=== PATIENT | female | born 1960 | race Caucasian/White ===

== ENCOUNTER 2021-06-24 15:49 | Inpatient (IN) | payer MEDICARE, SELFPAY ==
[~2021-06-24 15:49] MED LIST: Iopamidol-370 76% 500 ML 1 ML ONE
[2021-06-24 16:12] LABS: #Lymphocytes 1.6 thou/uL (1.20-3.40); #Monocytes 0.8 thou/uL (0.11-0.59); #Neutrophils 6.2 thou/uL (1.40-6.50); %Eosinophils 0.2 % (0.0-10.0); %Lymphocytes 18.2 % (21.0-51.0); %Monocytes 9.1 % (0.0-10.0); %Neutrophils 72.4 % (42.0-75.0); Hemoglobin 13.1 g/dL (12.0-16.0); Mean Corpuscular HGB CONC 35.7 g/dL (32.0-36.0); Mean Corpuscular Hemoglobin 34.7 pg (27.0-31.0); Mean Corpuscular Volume 97.3 fL (78.0-98.0); Mean Platelet Volume 7.1 fL (7.4-10.4); Platelet Count 318 thou/uL (130-400); RBC Distribution Width 11.2 % (11.5-14.5); Red Blood Cell (RBC) Count 3.79 mill/uL (4.20-5.40); White Blood Cell (WBC) Count 8.6 thou/uL (4.8-10.8)
[2021-06-24 16:33] LABS: ALT (SGPT) 283 U/L (8-55); AST (SGOT) 160 U/L (5-34); Alkaline Phosphatase 301 U/L (40-110); Anion Gap 13 mmol/L (10-20); BUN (Urea Nitrogen) 10 mg/dL (9.8-20.1); Bilirubin, Total 0.3 mg/dL (0.2-1.2); Calc. Creatinine Clearance 0 mL/min (70-130); Carbon Dioxide 27 mmol/L (22-29); Chloride 96 mmol/L (98-107); Globulin 3.5 g/dL (2.4-3.5); Glucose 94 mg/dL (70-105); Lipase 10 U/L (8-78); Potassium 3.8 mmol/L (3.5-5.1); Protein, Total 7.5 g/dL (6.0-8.3); Sodium 132 mmol/L (136-145)
[2021-06-24] MEDS ORDERED: Ketorolac Tromethamine 30 MG/ML VIAL ONE (18:02)
[2021-06-24] MEDS ORDERED: Acetaminophen 500 MG TAB ONE (18:02)
[2021-06-24 18:12] LABS: Bacteria/HPF None Seen HPF (None Seen); Bilirubin Negative (Negative); Blood, Urine Negative (Negative); Clarity Clear (Clear); Glucose, Urine (Dipstick) Normal (Negative); Ketone, Urine Negative (Negative); Leukocyte Negative Leu/uL (Negative); Nitrite Negative (Negative); Protein, Urine (Dipstick) 30 mg/dL (Neg-Trace); Specific Gravity, Urine 1.026 (1.002-1.036); Squamous Epithelial None Seen HPF (0-3); pH, Urine 6.5 (5.0-9.0)
[2021-06-24 18:32] LABS: Acetaminophen Less than 6.0 mcg/mL (10.0-30.0); Alcohol Less than 10 mg/dL (Less than 10); Salicylate Less than 8.0 mg/dL (15.0-30.0)
[2021-06-24 19:27] LABS: SARS-CoV-2 NAA Rapid Test DETECTED (NotDetected)
[2021-06-24] MEDS ORDERED: Senokot S 8.6-50 MG TAB PO PRN (19:56)
[2021-06-24] MEDS ORDERED: Ondansetron ODT 4 MG TAB PO PRN (19:56)
[2021-06-24] MEDS: Sodium Chloride 0.9% 1,000 ML IV SCH (21:17)
[2021-06-24] MEDS: Nicotine 14 MG PATCH TD SCH (21:17)
[2021-06-24 22:29] VITALS: BMI 23.8
[2021-06-24 22:54] LABS: Amphetamine Not Detected (NotDetected); Barbiturates Screen Not Detected (NotDetected); Benzodiazepine Screen Not Detected (NotDetected); Cocaine Metabolite Screen Not Detected (NotDetected); Methadone Not Detected (NotDetected); Methamphetamine Not Detected (NotDetected); Opiate Screen Not Detected (NotDetected); Oxycodone Screen Not Detected (NotDetected); Phencyclidine (PCP) Not Detected (NotDetected); THC/Cannabinoid Screen Detected (NotDetected); Tricyclic Screen Not Detected (NotDetected)
[2021-06-25] MEDS ORDERED: Albuterol 200 PUFF (6.7GM INHALER) INH PRN (02:03)
[2021-06-25] MEDS ORDERED: Dexamethasone 10 MG in Sodium Chloride 0.9% 50 ML IVPB SCH (02:30)
[2021-06-25] MEDS: Albuterol 200 PUFF (6.7GM INHALER) INH SCH ×6 (03:05→23:00)
[2021-06-25] MEDS: Sodium Chloride 0.9% 1,000 ML IV SCH (05:28)
[2021-06-25 06:20] LABS: ALT (SGPT) 185 U/L (8-55); AST (SGOT) 81 U/L (5-34); Albumin 3.2 g/dL (3.5-5.0); Alkaline Phosphatase 224 U/L (40-110); Anion Gap 11 mmol/L (10-20); BUN (Urea Nitrogen) 9 mg/dL (9.8-20.1); Bilirubin, Total 0.3 mg/dL (0.2-1.2); Calc. Creatinine Clearance 86 mL/min (70-130); Calcium 8.8 mg/dL (7.8-10.44); Carbon Dioxide 25 mmol/L (22-29); Chloride 105 mmol/L (98-107); Globulin 3.1 g/dL (2.4-3.5); Glucose 93 mg/dL (70-105); Potassium 3.7 mmol/L (3.5-5.1); Protein, Total 6.3 g/dL (6.0-8.3); Sodium 137 mmol/L (136-145)
[2021-06-25] MEDS ORDERED: Dexamethasone 4 MG TAB PO SCH (08:00)
[2021-06-25 08:23] LABS: Band 39 % (5-11); Hemoglobin 10.5 g/dL (12.0-16.0); Lymphocytes 13 % (21-51); MDiff Complete? YES; Mean Corpuscular HGB CONC 34.1 g/dL (32.0-36.0); Mean Corpuscular Hemoglobin 33.4 pg (27.0-31.0); Mean Platelet Volume 7.4 fL (7.4-10.4); Monocytes 4 % (0-10); Myelocyte 2 % (0-0); Neutrophil 42 % (42-75); Platelet Count 301 thou/uL (130-400); RBC Distribution Width 11.3 % (11.5-14.5); Red Blood Cell (RBC) Count 3.16 mill/uL (4.20-5.40); White Blood Cell (WBC) Count 8.3 thou/uL (4.8-10.8)
[2021-06-25] MEDS ORDERED: FLU VACC QS2021-22(6MOS UP)/PF 60 MCG/0.5 ML SYRINGE IM ONE (09:00)
[2021-06-25] MEDS ORDERED: Atorvastatin Calcium 10 MG TAB PO SCH (09:00)
[2021-06-25] MEDS ORDERED: Divalproex Sodium 250 MG (DR) TAB PO SCH (09:00)
[2021-06-25] MEDS ORDERED: Benztropine 1 MG TAB PO SCH (09:00)
[2021-06-25] MEDS: Enoxaparin Sodium 40 MG/0.4 ML SYRINGE SC SCH (09:22)
[2021-06-25] MEDS: Fluticasone Propionate Nasal Spray 16 gm Bottle NASAL SCH (10:06)
[2021-06-25] MEDS ORDERED: Valproate Sodium 250 MG in Sodium Chloride 0.9% 100 ML IVPB SCH (10:30)
[2021-06-25] MEDS: Trospium 20 MG TAB PO SCH ×2 (10:45→20:47)
[2021-06-25] MEDS: Venlafaxine HCl XR 75 MG CAP PO SCH (10:46)
[2021-06-25 14:09] LABS: HBSAB Concentration Less than 8.00 mIU/mL; HBSAg Index 0.16 S/CO (0-0.99); Hep B Core Total Ab Non-Reactive (NonReactive); Hep B Surf AB Non-Reactive (NonReactive); Hep B Surf Ag Non-Reactive S/CO (NonReactive); Hep C IgG Ab Non-Reactive (NonReactive)
[2021-06-25 14:12] LABS: HIV (1/2) Antibody/Antigen Non-Reactive (NonReactive); HIV 1/2 INDEX 0.14 S/CO (<1.00)
[2021-06-25] MEDS: Lactated Ringer's 1,000 ML IV SCH (14:12)
[2021-06-25] MEDS ORDERED: Thiamine HCl 200 MG/2 ML VIAL SLOW IVP SCH (15:00)
[2021-06-25] MEDS: Nicotine 14 MG PATCH TD SCH (20:47)
[2021-06-25] MEDS ORDERED: risperiDONE 1 MG TAB PO SCH (21:00)
[2021-06-26] MEDS: Albuterol 200 PUFF (6.7GM INHALER) INH SCH ×6 (02:30→22:00)
[2021-06-26 08:12] LABS: Band 18 % (5-11); Hemoglobin 11.5 g/dL (12.0-16.0); Lymphocytes 35 % (21-51); MDiff Complete? YES; Mean Corpuscular HGB CONC 33.8 g/dL (32.0-36.0); Mean Corpuscular Volume 97.8 fL (78.0-98.0); Mean Platelet Volume 9.3 fL (7.4-10.4); Monocytes 7 % (0-10); Neutrophil 40 % (42-75); Platelet Count 289 thou/uL (130-400); RBC Distribution Width 11.5 % (11.5-14.5); Red Blood Cell (RBC) Count 3.47 mill/uL (4.20-5.40); White Blood Cell (WBC) Count 13.2 thou/uL (4.8-10.8)
[2021-06-26] MEDS: Enoxaparin Sodium 40 MG/0.4 ML SYRINGE SC SCH (09:12)
[2021-06-26] MEDS: Venlafaxine HCl XR 75 MG CAP PO SCH (09:13)
[2021-06-26] MEDS: Trospium 20 MG TAB PO SCH ×2 (09:13→20:58)
[2021-06-26] MEDS: Dexamethasone 4 mg/ml Vial SLOW IVP SCH (09:13)
[2021-06-26] MEDS: Fluticasone Propionate Nasal Spray 16 gm Bottle NASAL SCH (10:11)
[2021-06-26 12:31] LABS: ALT (SGPT) 152 U/L (8-55); AST (SGOT) 56 U/L (5-34); Albumin 3.8 g/dL (3.5-5.0); Alkaline Phosphatase 222 U/L (40-110); Anion Gap 14 mmol/L (10-20); BUN (Urea Nitrogen) 6 mg/dL (9.8-20.1); Bilirubin, Total 0.3 mg/dL (0.2-1.2); Calc. Creatinine Clearance 81 mL/min (70-130); Carbon Dioxide 25 mmol/L (22-29); Chloride 100 mmol/L (98-107); Globulin 3.5 g/dL (2.4-3.5); Glucose 129 mg/dL (70-105); Potassium 3.4 mmol/L (3.5-5.1); Protein, Total 7.3 g/dL (6.0-8.3); Sodium 136 mmol/L (136-145)
[2021-06-26] MEDS: Lactated Ringer's 1,000 ML IV SCH ×3 (16:06→20:58)
[2021-06-26] MEDS: Nicotine 14 MG PATCH TD SCH (20:58)
[2021-06-27] MEDS: Albuterol 200 PUFF (6.7GM INHALER) INH SCH ×6 (02:00→21:02)
[2021-06-27] MEDS ORDERED: diphenhydrAMINE 50 MG/ML VIAL IVP SCH (04:00)
[2021-06-27] MEDS: Lactated Ringer's 1,000 ML IV SCH (06:09)
[2021-06-27 07:58] LABS: ALT (SGPT) 122 U/L (8-55); AST (SGOT) 43 U/L (5-34); Albumin 3.8 g/dL (3.5-5.0); Alkaline Phosphatase 192 U/L (40-110); Anion Gap 13 mmol/L (10-20); BUN (Urea Nitrogen) 5 mg/dL (9.8-20.1); Bilirubin, Total 0.4 mg/dL (0.2-1.2); Calc. Creatinine Clearance 86 mL/min (70-130); Calcium 9.8 mg/dL (7.8-10.44); Carbon Dioxide 25 mmol/L (22-29); Chloride 98 mmol/L (98-107); Globulin 3.4 g/dL (2.4-3.5); Glucose 109 mg/dL (70-105); Potassium 3.1 mmol/L (3.5-5.1); Protein, Total 7.2 g/dL (6.0-8.3); Sodium 133 mmol/L (136-145)
[2021-06-27] MEDS: Trospium 20 MG TAB PO SCH ×2 (09:09→21:00)
[2021-06-27] MEDS: Enoxaparin Sodium 40 MG/0.4 ML SYRINGE SC SCH (09:09)
[2021-06-27] MEDS: Fluticasone Propionate Nasal Spray 16 gm Bottle NASAL SCH (09:09)
[2021-06-27] MEDS: Dexamethasone 4 mg/ml Vial SLOW IVP SCH (09:09)
[2021-06-27] MEDS: Venlafaxine HCl XR 75 MG CAP PO SCH (09:10)
[2021-06-27 12:01] LABS: #Lymphocytes 1.4 thou/uL (1.20-3.40); #Monocytes 0.8 thou/uL (0.11-0.59); #Neutrophils 10.6 thou/uL (1.40-6.50); %Basophils 0.1 % (0.0-1.0); %Eosinophils 0.3 % (0.0-10.0); %Lymphocytes 10.9 % (21.0-51.0); %Monocytes 6.1 % (0.0-10.0); %Neutrophils 82.6 % (42.0-75.0); Mean Corpuscular Hemoglobin 32.8 pg (27.0-31.0); Mean Corpuscular Volume 96.6 fL (78.0-98.0); Mean Platelet Volume 6.8 fL (7.4-10.4); Platelet Count 457 thou/uL (130-400); RBC Distribution Width 11.4 % (11.5-14.5); Red Blood Cell (RBC) Count 3.66 mill/uL (4.20-5.40); White Blood Cell (WBC) Count 12.8 thou/uL (4.8-10.8)
[2021-06-27] MEDS ORDERED: risperiDONE 1 MG TAB PO SCH ×2 (21:00)
[2021-06-27] MEDS: Melatonin 3 MG TAB PO PRN (21:00)
[2021-06-27] MEDS: Nicotine 14 MG PATCH TD SCH (21:01)
[2021-06-28] MEDS: Albuterol 200 PUFF (6.7GM INHALER) INH SCH ×6 (06:57→19:42)
[2021-06-28 07:36] LABS: ALT (SGPT) 93 U/L (8-55); AST (SGOT) 38 U/L (5-34); Albumin 3.6 g/dL (3.5-5.0); Alkaline Phosphatase 170 U/L (40-110); Anion Gap 13 mmol/L (10-20); BUN (Urea Nitrogen) 11 mg/dL (9.8-20.1); Bilirubin, Total 0.3 mg/dL (0.2-1.2); Calc. Creatinine Clearance 74 mL/min (70-130); Calcium 9.4 mg/dL (7.8-10.44); Carbon Dioxide 27 mmol/L (22-29); Chloride 96 mmol/L (98-107); Glucose 109 mg/dL (70-105); Potassium 3.9 mmol/L (3.5-5.1); Protein, Total 7.6 g/dL (6.0-8.3); Sodium 132 mmol/L (136-145)
[2021-06-28] MEDS: Fluticasone Propionate Nasal Spray 16 gm Bottle NASAL SCH (08:53)
[2021-06-28] MEDS: Enoxaparin Sodium 40 MG/0.4 ML SYRINGE SC SCH (08:53)
[2021-06-28] MEDS: Dexamethasone 4 mg/ml Vial SLOW IVP SCH (08:53)
[2021-06-28] MEDS: Trospium 20 MG TAB PO SCH ×2 (08:54→19:41)
[2021-06-28] MEDS: Venlafaxine HCl XR 75 MG CAP PO SCH (08:54)
[2021-06-28 12:42] LABS: Hemoglobin 12.5 g/dL (12.0-16.0); Mean Corpuscular HGB CONC 34.9 g/dL (32.0-36.0); Mean Corpuscular Hemoglobin 33.8 pg (27.0-31.0); Mean Corpuscular Volume 97.1 fL (78.0-98.0); Mean Platelet Volume 9.3 fL (7.4-10.4); Platelet Count 221 thou/uL (130-400); RBC Distribution Width 11.4 % (11.5-14.5); Red Blood Cell (RBC) Count 3.68 mill/uL (4.20-5.40); White Blood Cell (WBC) Count 11.1 thou/uL (4.8-10.8)
[2021-06-28 13:01] LABS: Band 9 % (5-11); Lymphocytes 17 % (21-51); MDiff Complete? YES; Metamyelocyte 1 % (0-0); Monocytes 10 % (0-10); Neutrophil 59 % (42-75); Platelet Clumps MODERATE; Platelet Morphology Comment Appears Adequate; Polychromasia SLIGHT = 2-3 cells (100X) (0-2/hpf); Reactive Lymphocytes 4 % (0-10)
[2021-06-28] MEDS: risperiDONE 1 MG TAB PO SCH (19:41)
[2021-06-28] MEDS: Melatonin 3 MG TAB PO PRN (19:42)
[2021-06-28] MEDS: Nicotine 14 MG PATCH TD SCH (19:42)
[2021-06-28] MEDS: Acetaminophen 325 MG TAB PO PRN (21:07)
[2021-06-29] MEDS: Albuterol 200 PUFF (6.7GM INHALER) INH SCH ×6 (05:51→19:34)
[2021-06-29 07:12] LABS: Albumin 3.6 g/dL (3.5-5.0)
[2021-06-29 07:13] LABS: Chloride 97 mmol/L (98-107); Potassium 3.6 mmol/L (3.5-5.1); Sodium 133 mmol/L (136-145)
[2021-06-29 07:14] LABS: Calcium 9.4 mg/dL (7.8-10.44)
[2021-06-29 07:15] LABS: Globulin 3.3 g/dL (2.4-3.5); Glucose 105 mg/dL (70-105); Protein, Total 6.9 g/dL (6.0-8.3)
[2021-06-29 07:16] LABS: Anion Gap 13 mmol/L (10-20); Bilirubin, Total 0.3 mg/dL (0.2-1.2); Carbon Dioxide 27 mmol/L (22-29)
[2021-06-29 07:18] LABS: Alkaline Phosphatase 157 U/L (40-110); Calc. Creatinine Clearance 73 mL/min (70-130)
[2021-06-29 07:19] LABS: BUN (Urea Nitrogen) 19 mg/dL (9.8-20.1)
[2021-06-29 07:20] LABS: AST (SGOT) 27 U/L (5-34)
[2021-06-29 07:21] LABS: ALT (SGPT) 77 U/L (8-55)
[2021-06-29] MEDS ORDERED: Thiamine 100 MG TAB PO SCH (09:00)
[2021-06-29] MEDS: Dexamethasone 4 mg/ml Vial SLOW IVP SCH (09:37)
[2021-06-29] MEDS: Enoxaparin Sodium 40 MG/0.4 ML SYRINGE SC SCH (09:37)
[2021-06-29] MEDS: Venlafaxine HCl XR 75 MG CAP PO SCH (09:37)
[2021-06-29] MEDS: Trospium 20 MG TAB PO SCH ×2 (09:37→19:26)
[2021-06-29] MEDS: Fluticasone Propionate Nasal Spray 16 gm Bottle NASAL SCH (09:38)
[2021-06-29] MEDS ORDERED: Lorazepam 0.5 MG TAB PO SCH (15:30)
[2021-06-29] MEDS: risperiDONE 1 MG TAB PO SCH (19:25)
[2021-06-29] MEDS: Acetaminophen 325 MG TAB PO PRN (19:26)
[2021-06-29] MEDS: Melatonin 3 MG TAB PO PRN (19:26)
[2021-06-29] MEDS: Nicotine 14 MG PATCH TD SCH (19:26)
[2021-06-30] MEDS ORDERED: Lorazepam 2 MG/ML VIAL SLOW IVP SCH (01:00)
[2021-06-30] MEDS: Albuterol 200 PUFF (6.7GM INHALER) INH SCH ×6 (02:40→22:29)
[2021-06-30 07:10] LABS: ALT (SGPT) 64 U/L (8-55); AST (SGOT) 21 U/L (5-34); Albumin 3.8 g/dL (3.5-5.0); Alkaline Phosphatase 150 U/L (40-110); Anion Gap 9 mmol/L (10-20); BUN (Urea Nitrogen) 18 mg/dL (9.8-20.1); Bilirubin, Total 0.4 mg/dL (0.2-1.2); Calc. Creatinine Clearance 73 mL/min (70-130); Calcium 9.7 mg/dL (7.8-10.44); Carbon Dioxide 31 mmol/L (22-29); Chloride 99 mmol/L (98-107); Globulin 2.9 g/dL (2.4-3.5); Glucose 95 mg/dL (70-105); Potassium 4.2 mmol/L (3.5-5.1); Protein, Total 6.7 g/dL (6.0-8.3); Sodium 135 mmol/L (136-145)
[2021-06-30] MEDS: Trospium 20 MG TAB PO SCH ×2 (10:05→20:28)
[2021-06-30] MEDS: Enoxaparin Sodium 40 MG/0.4 ML SYRINGE SC SCH (10:06)
[2021-06-30] MEDS: Venlafaxine HCl XR 75 MG CAP PO SCH (10:06)
[2021-06-30] MEDS: Fluticasone Propionate Nasal Spray 16 gm Bottle NASAL SCH (10:06)
[2021-06-30] MEDS ORDERED: Divalproex Sodium DR 500 MG TAB PO SCH (10:30)
[2021-06-30] MEDS: Dexamethasone 4 mg/ml Vial SLOW IVP SCH (10:49)
[2021-06-30] MEDS ORDERED: Divalproex Sodium 250 MG (DR) TAB PO SCH (11:15)
[2021-06-30 17:54] LABS: Bilirubin Negative (Negative); Blood, Urine Negative (Negative); Clarity Turbid (Clear); Glucose, Urine (Dipstick) Normal (Negative); Ketone, Urine Negative (Negative); Leukocyte 25 Leu/uL (Negative); Nitrite Negative (Negative); Protein, Urine (Dipstick) Negative (Neg-Trace); RBC/HPF 0-3 HPF (0-3); Specific Gravity, Urine 1.016 (1.002-1.036); Squamous Epithelial None Seen HPF (0-3); Urobilinogen Normal mg/dL (Less than 2); pH, Urine 6.5 (5.0-9.0)
[2021-06-30 17:56] LABS: Bacteria/HPF 1+ HPF (None Seen); Urine Culture Reflex Yes Yes
[2021-06-30] MEDS: Nicotine 14 MG PATCH TD SCH (20:28)
[2021-06-30] MEDS: Melatonin 3 MG TAB PO PRN (20:28)
[2021-06-30] MEDS: risperiDONE 1 MG TAB PO SCH (20:28)
[2021-07-01] MEDS: Albuterol 200 PUFF (6.7GM INHALER) INH SCH ×6 (03:40→21:50)
[2021-07-01] MEDS: Dexamethasone 4 mg/ml Vial SLOW IVP SCH (08:55)
[2021-07-01] MEDS: Divalproex Sodium 250 MG (DR) TAB PO SCH (08:55)
[2021-07-01] MEDS: Trospium 20 MG TAB PO SCH ×2 (08:55→21:48)
[2021-07-01] MEDS: Enoxaparin Sodium 40 MG/0.4 ML SYRINGE SC SCH (08:57)
[2021-07-01] MEDS: Fluticasone Propionate Nasal Spray 16 gm Bottle NASAL SCH (08:58)
[2021-07-01] MEDS: Venlafaxine HCl XR 75 MG CAP PO SCH (08:59)
[2021-07-01] MEDS ORDERED: Divalproex Sodium DR 500 MG TAB PO SCH (09:00)
[2021-07-01 09:26] LABS: ALT (SGPT) 55 U/L (8-55); AST (SGOT) 19 U/L (5-34); Albumin 3.5 g/dL (3.5-5.0); Alkaline Phosphatase 137 U/L (40-110); Anion Gap 15 mmol/L (10-20); BUN (Urea Nitrogen) 19 mg/dL (9.8-20.1); Bilirubin, Total 0.5 mg/dL (0.2-1.2); Calc. Creatinine Clearance 84 mL/min (70-130); Calcium 9.2 mg/dL (7.8-10.44); Carbon Dioxide 23 mmol/L (22-29); Chloride 97 mmol/L (98-107); Globulin 3.2 g/dL (2.4-3.5); Glucose 83 mg/dL (70-105); Potassium 3.5 mmol/L (3.5-5.1); Protein, Total 6.7 g/dL (6.0-8.3); Sodium 131 mmol/L (136-145)
[2021-07-01] MEDS: Nitrofurantoin Monohyd/M-Cryst 100 MG CAP PO SCH ×2 (10:30→21:48)
[2021-07-01] MEDS: hydrOXYzine 10 MG TAB PO PRN ×2 (11:01→21:49)
[2021-07-01] MEDS: Sodium Chloride 0.9% 1,000 ML IV SCH ×2 (11:28→21:49)
[2021-07-01] MEDS ORDERED: hydrOXYzine 25 MG TAB PO SCH (12:15)
[2021-07-01] MEDS ORDERED: Lorazepam 0.5 MG TAB PO SCH (16:15)
[2021-07-01] MEDS ORDERED: hydrALAZINE 20 MG/ML VIAL SLOW IVP SCH (18:00)
[2021-07-01] MEDS: risperiDONE 1 MG TAB PO SCH (21:48)
[2021-07-01] MEDS: Nicotine 14 MG PATCH TD SCH (21:49)
[2021-07-01] MEDS: Melatonin 3 MG TAB PO PRN (21:53)
[2021-07-02] MEDS ORDERED: Lorazepam 0.5 MG TAB PO SCH (00:30)
[2021-07-02] MEDS ORDERED: Haloperidol Lactate 5 MG/ML VIAL IM SCH (02:45)
[2021-07-02] MEDS: Albuterol 200 PUFF (6.7GM INHALER) INH SCH ×6 (03:07→22:01)
[2021-07-02] MEDS: Sodium Chloride 0.9% 1,000 ML IV SCH (05:49)
[2021-07-02] MEDS ORDERED: Lorazepam 2 MG/ML VIAL SLOW IVP SCH ×2 (06:30→11:15)
[2021-07-02 07:41] LABS: ALT (SGPT) 50 U/L (8-55); AST (SGOT) 19 U/L (5-34); Albumin 3.9 g/dL (3.5-5.0); Alkaline Phosphatase 140 U/L (40-110); Anion Gap 16 mmol/L (10-20); BUN (Urea Nitrogen) 13 mg/dL (9.8-20.1); Bilirubin, Total 0.6 mg/dL (0.2-1.2); Calc. Creatinine Clearance 87 mL/min (70-130); Calcium 9.7 mg/dL (7.8-10.44); Carbon Dioxide 20 mmol/L (22-29); Chloride 98 mmol/L (98-107); Globulin 3.4 g/dL (2.4-3.5); Glucose 94 mg/dL (70-105); Potassium 3.4 mmol/L (3.5-5.1); Protein, Total 7.3 g/dL (6.0-8.3); Sodium 131 mmol/L (136-145)
[2021-07-02] MEDS: Nitrofurantoin Monohyd/M-Cryst 100 MG CAP PO SCH ×2 (08:10→21:38)
[2021-07-02] MEDS: Dexamethasone 4 mg/ml Vial SLOW IVP SCH (08:10)
[2021-07-02] MEDS: Trospium 20 MG TAB PO SCH ×2 (08:10→21:38)
[2021-07-02] MEDS: Venlafaxine HCl XR 75 MG CAP PO SCH (08:12)
[2021-07-02] MEDS: Enoxaparin Sodium 40 MG/0.4 ML SYRINGE SC SCH (08:13)
[2021-07-02] MEDS: Fluticasone Propionate Nasal Spray 16 gm Bottle NASAL SCH (08:13)
[2021-07-02] MEDS: Divalproex Sodium 250 MG (DR) TAB PO SCH (08:13)
[2021-07-02] MEDS: hydrOXYzine 10 MG TAB PO PRN ×2 (08:18→21:39)
[2021-07-02] MEDS ORDERED: risperiDONE 1 MG TAB PO SCH (09:45)
[2021-07-02] MEDS ORDERED: Lorazepam 2 MG/ML VIAL ONE (11:16)
[2021-07-02] MEDS: risperiDONE 1 MG TAB PO SCH (21:38)
[2021-07-02] MEDS: Nicotine 14 MG PATCH TD SCH (21:39)
[2021-07-02] MEDS: Melatonin 3 MG TAB PO PRN (21:39)
[2021-07-02] MEDS ORDERED: Lorazepam 1 MG TAB PO SCH (23:30)
[2021-07-03] MEDS: Albuterol 200 PUFF (6.7GM INHALER) INH SCH ×6 (02:54→21:51)
[2021-07-03] MEDS: Trospium 20 MG TAB PO SCH ×2 (07:56→20:56)
[2021-07-03] MEDS: Nitrofurantoin Monohyd/M-Cryst 100 MG CAP PO SCH (07:56)
[2021-07-03] MEDS: Venlafaxine HCl XR 75 MG CAP PO SCH (07:56)
[2021-07-03] MEDS: Thiamine 100 MG TAB PO SCH (07:56)
[2021-07-03] MEDS: Enoxaparin Sodium 40 MG/0.4 ML SYRINGE SC SCH (07:56)
[2021-07-03] MEDS: Divalproex Sodium 250 MG (DR) TAB PO SCH (07:56)
[2021-07-03] MEDS: risperiDONE 1 MG TAB PO SCH ×2 (07:56→20:56)
[2021-07-03] MEDS: Fluticasone Propionate Nasal Spray 16 gm Bottle NASAL SCH (07:57)
[2021-07-03] MEDS: Lorazepam 2 MG/ML VIAL SLOW IVP PRN ×2 (11:53→19:33)
[2021-07-03] MEDS: cefTRIAXone\\ROCEPHIN 1 GM in Sodium Chloride 0.9% 100 ML IVPB SCH (12:07)
[2021-07-03 16:04] LABS: ALT (SGPT) 39 U/L (8-55); AST (SGOT) 18 U/L (5-34); Albumin 3.3 g/dL (3.5-5.0); Alkaline Phosphatase 115 U/L (40-110); Anion Gap 14 mmol/L (10-20); BUN (Urea Nitrogen) 17 mg/dL (9.8-20.1); Bilirubin, Total 0.4 mg/dL (0.2-1.2); Calc. Creatinine Clearance 86 mL/min (70-130); Calcium 9.5 mg/dL (7.8-10.44); Carbon Dioxide 22 mmol/L (22-29); Chloride 101 mmol/L (98-107); Globulin 3.1 g/dL (2.4-3.5); Glucose 74 mg/dL (70-105); Potassium 4.2 mmol/L (3.5-5.1); Protein, Total 6.4 g/dL (6.0-8.3); Sodium 133 mmol/L (136-145)
[2021-07-03 16:18] LABS: BUN (Urea Nitrogen) 18 mg/dL (9.8-20.1); Calc. Creatinine Clearance 88 mL/min (70-130); Carbon Dioxide 18 mmol/L (22-29); Glucose 68 mg/dL (70-105)
[2021-07-03 16:21] LABS: Anion Gap 16 mmol/L (10-20); Calcium 9.5 mg/dL (7.8-10.44); Chloride 102 mmol/L (98-107); Potassium 4.2 mmol/L (3.5-5.1); Sodium 133 mmol/L (136-145)
[2021-07-03] MEDS: Nicotine 14 MG PATCH TD SCH (20:56)
[2021-07-03] MEDS: Melatonin 3 MG TAB PO PRN (20:57)
[2021-07-03] MEDS: Acetaminophen 325 MG TAB PO PRN (20:57)
[2021-07-04] MEDS: Albuterol 200 PUFF (6.7GM INHALER) INH SCH ×6 (03:12→21:38)
[2021-07-04 08:02] LABS: ALT (SGPT) 40 U/L (8-55); AST (SGOT) 17 U/L (5-34); Albumin 3.7 g/dL (3.5-5.0); Alkaline Phosphatase 126 U/L (40-110); Anion Gap 16 mmol/L (10-20); BUN (Urea Nitrogen) 22 mg/dL (9.8-20.1); Bilirubin, Total 0.6 mg/dL (0.2-1.2); Calc. Creatinine Clearance 84 mL/min (70-130); Calcium 9.7 mg/dL (7.8-10.44); Carbon Dioxide 22 mmol/L (22-29); Chloride 100 mmol/L (98-107); Globulin 3.2 g/dL (2.4-3.5); Glucose 84 mg/dL (70-105); Potassium 4.5 mmol/L (3.5-5.1); Protein, Total 6.9 g/dL (6.0-8.3); Sodium 133 mmol/L (136-145)
[2021-07-04] MEDS: Thiamine 100 MG TAB PO SCH (08:13)
[2021-07-04] MEDS: Lorazepam 2 MG/ML VIAL SLOW IVP PRN ×3 (08:14→20:39)
[2021-07-04] MEDS: Fluticasone Propionate Nasal Spray 16 gm Bottle NASAL SCH (08:14)
[2021-07-04] MEDS: Divalproex Sodium 250 MG (DR) TAB PO SCH (08:14)
[2021-07-04] MEDS: Enoxaparin Sodium 40 MG/0.4 ML SYRINGE SC SCH (08:14)
[2021-07-04] MEDS: Trospium 20 MG TAB PO SCH ×2 (08:14→20:38)
[2021-07-04] MEDS: risperiDONE 1 MG TAB PO SCH (08:14)
[2021-07-04] MEDS: Venlafaxine HCl XR 75 MG CAP PO SCH (08:14)
[2021-07-04] MEDS ORDERED: Lactated Ringer's 1,000 ML IV SCH (11:30)
[2021-07-04] MEDS ORDERED: Sodium Chloride 0.9% 1,000 ML IV SCH (11:30)
[2021-07-04] MEDS: cefTRIAXone\\ROCEPHIN 1 GM in Sodium Chloride 0.9% 100 ML IVPB SCH (13:38)
[2021-07-04] MEDS: Nicotine 14 MG PATCH TD SCH (20:39)
[2021-07-05] MEDS: Albuterol 200 PUFF (6.7GM INHALER) INH SCH ×2 (01:56→05:01)
[2021-07-05] MEDS: Lorazepam 2 MG/ML VIAL SLOW IVP PRN (02:56)
[2021-07-05 06:44] LABS: ALT (SGPT) 36 U/L (8-55); AST (SGOT) 20 U/L (5-34); Albumin 3.4 g/dL (3.5-5.0); Alkaline Phosphatase 116 U/L (40-110); Anion Gap 15 mmol/L (10-20); BUN (Urea Nitrogen) 12 mg/dL (9.8-20.1); Bilirubin, Total 0.7 mg/dL (0.2-1.2); Calc. Creatinine Clearance 88 mL/min (70-130); Calcium 9.4 mg/dL (7.8-10.44); Carbon Dioxide 22 mmol/L (22-29); Chloride 100 mmol/L (98-107); Globulin 3.4 g/dL (2.4-3.5); Glucose 70 mg/dL (70-105); Potassium 4.8 mmol/L (3.5-5.1); Protein, Total 6.8 g/dL (6.0-8.3); Sodium 132 mmol/L (136-145)
[2021-07-05 07:29] LABS: SARS-CoV-2 PCR by NAA Not Detected (NotDetected)
[2021-07-05 08:30] VITALS: BP 133/73; TEMP 97.6
[2021-07-05] MEDS: Venlafaxine HCl XR 75 MG CAP PO SCH (11:16)
[2021-07-05] MEDS: Trospium 20 MG TAB PO SCH (11:16)
[2021-07-05] MEDS: Thiamine 100 MG TAB PO SCH (11:16)
[2021-07-05] MEDS: Divalproex Sodium 250 MG (DR) TAB PO SCH (11:16)
[2021-07-05] MEDS: Fluticasone Propionate Nasal Spray 16 gm Bottle NASAL SCH (11:16)
[2021-07-05] MEDS: risperiDONE 1 MG TAB PO SCH (11:16)
[2021-07-05] MEDS: Enoxaparin Sodium 40 MG/0.4 ML SYRINGE SC SCH (11:17)
[2021-07-05] MEDS: cefTRIAXone\\ROCEPHIN 1 GM in Sodium Chloride 0.9% 100 ML IVPB SCH (11:17)
== END 2021-07-05 17:04 | disposition short-term general hospital (02) | DRG 871 ==
LOC: ERS 15:49 → T4-A 18:26
PROVIDERS: ADMIT Student in an Organized Health Care Education/Training Program; ATTEND Student in an Organized Health Care Education/Training Program
PROC: 8E0ZXY6 Isolation (ICD-10-PCS; principal; 2021-06-24)
PROC: 3E0333Z Introduction of Anti-inflammatory into Peripheral Vein, Percutaneous Approach (ICD-10-PCS; 2021-06-24)
DX: A41.89 Other specified sepsis (principal); U07.1 COVID-19; E87.1 Hypo-osmolality and hyponatremia; N39.0 Urinary tract infection, site not specified; E46 Unspecified protein-calorie malnutrition; E51.2 Wernicke's encephalopathy; R74.01 Elevation of levels of liver transaminase levels; R32 Unspecified urinary incontinence; F12.10 Cannabis abuse, uncomplicated; F10.97 Alcohol use, unspecified with alcohol-induced persisting dementia; F25.0 Schizoaffective disorder, bipolar type; F17.210 Nicotine dependence, cigarettes, uncomplicated; R09.02 Hypoxemia; E87.8 Other disorders of electrolyte and fluid balance, not elsewhere classified; Z79.899 Other long term (current) drug therapy; Z68.23 Body mass index [BMI] 23.0-23.9, adult; Z78.1 Physical restraint status
CPT/HCPCS: 0240U; 36415; 36416; 51701; 70450; 70551; 71045; 71275; 80053; 80164; 80306; 80307; 81001; 81003; 81015; 82140; 82607; 83605; 83690; 84145; 84425; 84443; 84484; 85007; 85025; 85027; 86140; 86704; 86706; 86803; 87077; 87086; 87340; 87389; 93005; 94760; 96374; J0360; J0696; J1100; J1200; J1630; J1650; J1885; J2060; J3411; J3490; J7050; J7120; Q9967; U0003; U0005